=== PATIENT | male | born 1945 | race American Indian/Alaskan Native ===

== ENCOUNTER 2016-08-04 10:58 | Day surgery (SDC) | payer MEDICARE ==
--- NOTE | 2016-08-03 12:09 | Short Stay Summary ---
Short Stay Documentation Date of service: 08/03/16 Narrative H&P: 70 yr old male SHADI SCOTT MD / NON SMOKER / COLON CANCER - INSOMNIA - SLEEP APNEA - HEARING PROBLEMS / STRICTURES IN PAST / ED * LOW T KIT (CIALIS NR) NEEDS CYSTO, DVIU, RPG - History Past Medical History: cancer Past Surgical History: bowel surgery Social history: no significant social history - Allergies and Medications Current Medications: Allergies No Known Allergies Allergy (Verified 07/19/16 17:01) Home Medications Medication Instructions Recorded Confirmed Last Taken Type Ergocalciferol [Vitamin D2] 1 cap PO QWEEK 07/19/16 07/19/16 Unknown History Folic Acid [Folvite] 1 mg PO DAILY 07/19/16 07/19/16 Unknown History Losartan [Cozaar] 50 mg PO QDAY 07/19/16 07/19/16 Unknown History Omeprazole 40 mg PO DAILY 07/19/16 07/19/16 Unknown History Pravastatin Sodium [Pravastatin] 80 mg PO QHS 07/19/16 07/19/16 Unknown History Zolpidem Tartrate [Ambien CR] 6.25 mg PO QHS 07/19/16 07/19/16 Unknown History amLODIPine [Norvasc] 10 mg PO DAILY 07/19/16 07/19/16 Unknown History Active Medications Cefazolin Sodium (Ancef/Sterile Water 2 Gm/20 Ml) 2 gm IV PREOP NR Stop: 08/04/16 23:59 - Physical exam General appearance: no acute distress, well-nourished Integumentary: no rash HEENT: Atraumatic, PERRLA, EOMI Lungs: Clear to auscultation Breasts: deferred Heart: Regular rate, No murmurs Gastrointestinal: normal Male Genitourinary: normal Rectal Exam: deferred Extremities: no ischemia, No edema
[~2016-08-04 10:58] MED LIST: ANCEF/STERILE WATER 2 GM/20 ML IV NR; WATER FOR IRRIG STERILE IR ONE
--- NOTE | 2016-08-04 12:26 | Anesthesia Consultation ---
Anesthesia Consult and Med Hx Date of service: 08/04/16 - Airway Anesthetic Teeth Evaluation: Good ROM Head & Neck: Adequate Mental/Hyoid Distance: Adequate Mallampati Class: Class II Intubation Access Assessment: Probably Good - Pulmonary Exam CTA: Yes - Cardiac Exam Cardiac Exam: RRR - Pre-Operative Health Status ASA Pre-Surgery Classification: ASA3 Proposed Anesthetic Plan: General - Pre-Anesthesia Comment Pre-Anesthesia Comments: advanced age - Pulmonary Hx Smoking: No SOB: Yes (SOME SOB WITH ACTIVITY.) Hx Sleep Apnea: Yes (DX SLEEP APNEA WITH CPAP USE.) - Cardiovascular System Hx Hypertension: Yes (X 5 YRS) - Central Nervous System Hx Back Pain: Yes (BACK PAIN WITH DEVAUGHN LEG PAIN)
--- NOTE | 2016-08-04 12:26 | Anesthesia Day of Surgery ---
Anesthesia Day of Surgery - Day of Surgery Patient Examined: Yes Patient H&P Reviewed: Yes Patient is NPO: Yes
[2016-08-04] MEDS ORDERED: SUBLIMAZE ONE (12:27)
[2016-08-04] MEDS ORDERED: DIPRIVAN 10 MG/ML IV ONE (12:27)
[2016-08-04] MEDS ORDERED: DILAUDID IV PRN (12:28)
[2016-08-04] MEDS ORDERED: NORCO 5/325 PO PRN (12:28)
[2016-08-04] MEDS ORDERED: ZOFRAN IV PRN (12:28)
[2016-08-04] MEDS ORDERED: XYLOCAINE MPF 2% ONE (12:31)
[2016-08-04] MEDS ORDERED: ZEMURON IV ONE (12:52)
[2016-08-04] MEDS ORDERED: NACL 0.9% 1000 ML 1,000 ML IV SCH (13:00)
[2016-08-04] MEDS ORDERED: VERSED IV NR (13:00)
[2016-08-04] MEDS ORDERED: ZOFRAN ONE (13:18)
[2016-08-04] MEDS ORDERED: DECADRON ONE (13:18)
[2016-08-04] MEDS ORDERED: WATER FOR IRRIG STERILE IR ONE ×2 (13:45)
--- NOTE | 2016-08-04 13:57 | Short Stay Summary ---
Short Stay Documentation Date of service: 08/04/16 - History H&P: obtained from office Past Medical History: cancer Past Surgical History: bowel surgery Social history: no significant social history - Allergies and Medications Current Medications: Allergies No Known Allergies Allergy (Verified 07/19/16 17:01) Home Medications Medication Instructions Recorded Confirmed Last Taken Type Ergocalciferol [Vitamin D2] 1 cap PO QWEEK 07/19/16 07/19/16 08/03/16 History Folic Acid [Folvite] 1 mg PO DAILY 07/19/16 07/19/16 08/03/16 History Losartan [Cozaar] 50 mg PO QDAY 07/19/16 07/19/16 08/03/16 History Omeprazole 40 mg PO DAILY 07/19/16 07/19/16 08/03/16 History Pravastatin Sodium [Pravastatin] 80 mg PO QHS 07/19/16 07/19/16 08/03/16 History Zolpidem Tartrate [Ambien CR] 6.25 mg PO QHS 07/19/16 07/19/16 08/03/16 History amLODIPine [Norvasc] 10 mg PO DAILY 07/19/16 07/19/16 08/03/16 History Active Medications Cefazolin Sodium (Ancef/Sterile Water 2 Gm/20 Ml) 2 gm IV PREOP NR Stop: 08/04/16 23:59 Hydromorphone HCl (Dilaudid) 0.5 mg IV Q10MIN PRN PRN Reason: Pain , Severe (7-10) Stop: 08/04/16 23:59 Sodium Chloride (Nacl 0.9% 1000 Ml) 1,000 mls @ 100 mls/hr IV DIRECT SAM Last Admin: 08/04/16 12:53 Dose: 100 mls/hr Midazolam HCl (Versed) 2 mg IV PREOP NR Stop: 08/04/16 23:59 Last Admin: 08/04/16 12:58 Dose: 2 mg - Physical exam Breasts: deferred Heart: Regular rate, No murmurs Male Genitourinary: normal Extremities: no ischemia, No edema - Brief post op/procedure progress note Date of procedure: 08/04/16 Pre-op diagnosis: urethral stricture Post-op diagnosis: same Procedure: cysto, dviu, rpg Anesthesia: GETA Surgeon: IRENE PIZARRO Estimated blood loss: none Pathology: none Condition: stable - Disposition Condition at discharge: Stable Disposition: DISCHARGED TO HOME OR SELFCARE Short Stay Discharge Plan Follow up with: SHADI SCOTT MD [Primary Care Provider] - 7 Days
--- NOTE | 2016-08-04 14:48 | Post Anesthesia Evaluation ---
- Post Anesthesia Evaluation Patient Participated: Yes Airway Patent: Yes Stable Respiratory Function: Yes Temp > 96.8F: Yes Pain Manageable: Yes Adequeate Hydration: Yes Anesthesia Complications: No Block Receding Appropriately: Not Applicable
[2016-08-04 15:36] VITALS: BP 109/67
[2016-08-04] MEDS ORDERED: NEO SYNEPHRINE ONE (16:06)
[2016-08-04] MEDS ORDERED: NACL 0.9% 100 ML ONE (16:06)
--- NOTE | 2016-08-05 00:36 | Operative Report ---
PREOPERATIVE DIAGNOSIS: Urethral stricture. POSTOPERATIVE DIAGNOSIS: Urethral stricture. PROCEDURE: Cystoscopy, direct vision internal urethrotomy, bilateral retrograde pyelograms. SURGEON: He Ingram MD ANESTHESIA: General. ANESTHESIOLOGIST: Simba Butler MD ESTIMATED BLOOD LOSS: Minimal. FLUIDS: Crystalloid. COMPLICATIONS: No complications. INDICATIONS: This patient is a 70-year-old gentleman seen in the office for voiding dysfunction, has a history of colon cancer, status post resection, strictures in the past. He also has erectile dysfunction, unresponsive to Cialis per the patient. He presents now for intervention. Risks, benefits, and complications were explained. DESCRIPTION OF PROCEDURE: The patient was taken to the operative suite, placed in a supine position. After adequate general anesthesia, placed in a dorsal lithotomy position, prepped and draped in a sterile fashion. Pan____ was performed. Obvious bulbar stricture could be appreciated approximately 1 cm in length. A 0.035 Glidewire was placed. Powell knife was used. A cut was made at the 12 o'clock position. I was able to advance the scope into the bladder and prostate. It was then switched out for a 22-Gibraltarian sheath. A 0.035 guidewire was left indwelling as a safety. Bladder, no tumors or stones were noted. Both ureteral orifices in normal position, minimally obstructing prostate. Bilateral retrograde pyelograms were obtained with an 8 Gibraltarian [place] catheter and 8 mL of contrast. No filling defects or obstruction. A 20-Gibraltarian saxman tip catheter was advanced over the wire. Rectal exam was benign. The patient tolerated the procedure well, was extubated and taken to recovery room. [facility] [place]. Follow up in the office for Yeung catheter removal. JOB# [id number] [facility]
--- NOTE | 2016-08-05 08:43 | Fluoroscopy Report ---
Retrograde pyelogram. History: Prostatic enlargement with difficulty urinating. Findings: There is a duplicated collecting system on the left which is otherwise normal. The right pelvic calyceal system and both ureters appear normal. Impression: Normal study.
== END 2016-08-04 16:00 | disposition home or self-care (01) ==
LOC: OR 10:58
PROVIDERS: ATTEND Urology
DX: N35.9 Urethral stricture, unspecified (principal); I10 Essential (primary) hypertension; G47.33 Obstructive sleep apnea (adult) (pediatric); Z98.890 Other specified postprocedural states; Z85.038 Personal history of other malignant neoplasm of large intestine; Z79.899 Other long term (current) drug therapy
CPT/HCPCS: 52005; 52276; 74420; 82962; A4217; C1758; C1769; J0690; J1100; J2250; J2370; J2405; J2704; J3010; J7030; Q9967

== ENCOUNTER 2016-09-30 10:47 | Outpatient (CLI) | payer MEDICARE ==
--- NOTE | 2016-09-30 14:00 | Fluoroscopy Report ---
FLUORO RETROGRADE UROGRAPHY INDICATION: Urethral stricture. COMPARISON: None similar. FINDINGS: Retrograde urogram performed using standard sterile precautions. 20 cc of Omnipaque 300 hand injected via a catheter tip placed in the distal urethra. English Lecturer image demonstrate few pelvic and scrotal phleboliths. Introduction of contrast demonstrates normal imaged prostatic, bulbar and penile urethra with mild waist at the level of the membranous urethra. CONCLUSION: No significant urethral stricture identified, as described. Please correlate. Thank you for the opportunity to participate in this patient's care.
== END 2016-09-30 10:48 | disposition home or self-care (01) ==
LOC: FLUORO 10:47 → CT 10:47 → FLUORO 10:48
PROVIDERS: ATTEND Urology
DX: N35.8 Other urethral stricture (principal); I87.8 Other specified disorders of veins
CPT/HCPCS: 51610; 74450; Q9967

== ENCOUNTER 2017-12-19 07:56 | Day surgery (SDC) | payer MEDICARE ==
--- NOTE | 2017-12-19 10:22 | Anesthesia Consultation ---
Anesthesia Consult and Med Hx Date of service: 12/19/17 - Airway Anesthetic Teeth Evaluation: Good ROM Head & Neck: Adequate Mental/Hyoid Distance: Adequate Mallampati Class: Class I Intubation Access Assessment: Probably Good - Pulmonary Exam CTA: Yes - Cardiac Exam Cardiac Exam: RRR - Pre-Operative Health Status ASA Pre-Surgery Classification: ASA2 Proposed Anesthetic Plan: General - Pulmonary Hx Smoking: No SOB: Yes (SOME SOB WITH ACTIVITY.) Hx Sleep Apnea: Yes (DX SLEEP APNEA WITH CPAP USE.) - Cardiovascular System Hx Hypertension: Yes (X 5 YRS) Hx Heart Attack/AMI: No Hx Cardia Arrhythmia: No - Central Nervous System Hx Neuromuscular Disorder: No Hx Back Pain: Yes (BACK PAIN WITH DEVAUGHN LEG PAIN) - Gastrointestinal Hx Gastroesophageal Reflux Disease: No - Endocrine Hx Renal Disease: Yes (Kidney stones) Hx End Stage Renal Disease: No Hx Liver Disease: No Hx Insulin Dependent Diabetes: No Hx Non-Insulin Dependent Diabetes: No Hx Thyroid Disease: No - Hematic Hx Anemia: No - Other Systems Hx Alcohol Use: No Hx Substance Use: No - Additional Comments Anesthesia Medical History Comments: No previous anesthetic, No FHAC
[2017-12-19] MEDS ORDERED: NACL 0.9% 1000 ML 1,000 ML IV SCH (11:25)
[2017-12-19] MEDS ORDERED: DIPRIVAN 10 MG/ML IV ONE (11:54)
[2017-12-19] MEDS ORDERED: DILAUDID ONE (11:54)
[2017-12-19] MEDS ORDERED: XYLOCAINE MPF 2% ONE (12:00)
[2017-12-19] MEDS ORDERED: ANCEF/STERILE WATER 2 GM/20 ML IV NR (12:00)
[2017-12-19] MEDS ORDERED: WATER FOR IRRIG STERILE IR ONE (12:20)
--- NOTE | 2017-12-19 12:35 | Short Stay Summary ---
Short Stay Documentation Date of service: 12/19/17 - History H&P: obtained from office - Allergies and Medications Current Medications: Allergies No Known Allergies Allergy (Verified 07/19/16 17:01) Home Medications Medication Instructions Recorded Confirmed Last Taken Type Folic Acid [Folvite] 1,000 mcg PO DAILY 07/19/16 12/19/17 12/18/17 History Losartan [Cozaar] 50 mg PO QDAY 07/19/16 12/19/17 12/18/17 History Omeprazole 40 mg PO DAILY 07/19/16 12/19/17 12/18/17 History Pravastatin Sodium [Pravastatin] 80 mg PO QHS 07/19/16 12/19/17 12/18/17 History Zolpidem Tartrate [Ambien CR] 5 mg PO QHS 07/19/16 12/19/17 12/18/17 History amLODIPine [Norvasc] 10 mg PO DAILY 07/19/16 12/19/17 12/18/17 History Ibuprofen [Ibuprofen Ib] 200 mg PO PRN PRN 12/19/17 12/19/17 1 Week Ago History ~12/12/17 Active Medications Cefazolin Sodium (Ancef/Sterile Water 2 Gm/20 Ml) 2 gm IV PREOP NR Stop: 12/19/17 21:00 Sodium Chloride (Nacl 0.9% 1000 Ml) 1,000 mls @ 100 mls/hr IV DIRECT SAM Last Admin: 12/19/17 11:47 Dose: 100 mls/hr - Brief post op/procedure progress note Date of procedure: 12/19/17 Pre-op diagnosis: urethral stricture Post-op diagnosis: same Procedure: cysto, rpg, internal urethrotomy, cystogram Anesthesia: GETA Surgeon: IRENE PIZARRO Estimated blood loss: none Condition: stable - Hospital course Hospital course: michaelro & dajuan on chart - Disposition Condition at discharge: Stable Disposition: DC-01 TO HOME OR SELFCARE Short Stay Discharge Plan Follow up with: SHADI SCOTT MD [Primary Care Provider] - 7 Days
--- NOTE | 2017-12-19 12:58 | Operative Report ---
PREOPERATIVE DIAGNOSIS: Dense urethral stricture (bulbar). POSTOPERATIVE DIAGNOSES: Dense urethral stricture (bulbar). PROCEDURE: Cystoscopy, internal urethrotomy, bilateral retrograde pyelogram, cystogram. SURGEON: He Ingram MD ANESTHESIA: General. ESTIMATED BLOOD LOSS: Minimal. FLUIDS: Crystalloid. COMPLICATIONS: No complications. INDICATIONS: This patient is a 72-year-old gentleman known to our service, history of strictures. He was intermittent cathing once a day. The patient missed few days and started to notice difficulty doing intermittent cath. He had to cancel his back surgery due to inability to place a Yeung catheter. He presents now for intervention. We discussed buccal mucosal graft with Dr. Spann, possibly in the future. DESCRIPTION OF PROCEDURE: The patient was taken to the operative suite, placed in a supine position. After adequate general anesthesia, placed in a dorsal lithotomy position, prepped and draped in a sterile fashion. Pancystourethroscopy was performed. Obvious tight bulbar stricture could be appreciated. It was cannulated with a 0.035 Glidewire. Using a Powell knife cut at the 12 o'clock, 9 o'clock and 3 o'clock positions allowed opening of the stricture. The scope was advanced into the bladder. It was then exchanged for a 22-Spanish cystoscope. A wire was left indwelling. Prostate displayed mild trilobar obstruction. Bladder was noted to have diffuse trabeculation, no tumors or stones. Both ureteral orifices in normal position. Bilateral retrograde pyelograms were obtained with an 8-Spanish Gregory catheter and 8 mL of contrast. No filling defects or obstruction. A 16-Spanish bill moore's slough tip catheter was placed over a wire. Cystogram confirmed adequate position. Rectal exam was benign. He was extubated and taken to recovery room. He will go home on [employer] and follow up in the office. JOB# [id number] [facility]
[2017-12-19 15:43] VITALS: BP 138/84
--- NOTE | 2017-12-20 07:51 | Fluoroscopy Report ---
FLUOROSCOPY RETROGRADE UROGRAPHY: FLUOROSCOPY CYSTOGRAM STATIC-OR: HISTORY: Ureteral stricture. FINDINGS: Fluoroscopy was provided by radiology during retrograde urography by the urologist. 10 fluoroscopic images were captured. There is adequate filling of the ureters and intrarenal collecting systems with no filling defects or abnormal dilatation. A bifid left renal pelvis is noted. Only a limited AP view of the bladder is presented containing contrast. Mild trabeculation of the bladder wall is suspected. No obvious filling defect or mass. Please correlate with the procedural report if needed. IMPRESSION: Retrograde pyelograms within normal limits.
== END 2017-12-19 14:54 | disposition home or self-care (01) ==
LOC: OR 07:56
PROVIDERS: ATTEND Urology
DX: N35.8 Other urethral stricture (principal); E11.9 Type 2 diabetes mellitus without complications; E78.00 Pure hypercholesterolemia, unspecified; I10 Essential (primary) hypertension; G47.30 Sleep apnea, unspecified; K21.9 Gastro-esophageal reflux disease without esophagitis; J18.9 Pneumonia, unspecified organism; N32.89 Other specified disorders of bladder; Z79.01 Long term (current) use of anticoagulants; Z87.891 Personal history of nicotine dependence; Z98.890 Other specified postprocedural states; Z79.899 Other long term (current) drug therapy
CPT/HCPCS: 52275; 74420; 74430; 82962; A4217; C1758; J0690; J1170; J2704; J7030; Q9967